=== PATIENT | male | born 1965 | race African-American/Black ===

== ENCOUNTER 2016-08-10 03:02 | Emergency (ER) | payer BC, OTHER ==
[2016-08-10] MEDS ORDERED: METHYLPREDNISOLONE INJ 125 MG/2 ML SDV IV ONE (04:29)
[2016-08-10] MEDS ORDERED: FAMOTIDINE INJ/PF 20 MG/2 ML SDV IV ONE (04:29)
[2016-08-10] MEDS ORDERED: DIPHENHYDRAMINE HCL 50 MG/ML VIAL IV ONE (04:29)
--- NOTE | 2016-08-10 04:32 | ER Document Report ---
ED Eye Complaint - General Chief Complaint: Drainage from Eye Stated Complaint: SWOLLEN EYES Time Seen by Provider: 08/10/16 04:21 Notes: Patient is a 50-year-old male that comes emergency department for chief complaint of left eyelid swelling. He states that this is the third day, he states initially he was taken Benadryl because it was itching but it did not resolve. He states he was seen by urgent care yesterday and placed on erythromycin ointment. He woke up this morning and noticed that the swelling was worse. He states that the area feels like it is burning, it is itchy, it is irritated, it is not specifically painful. He denies visual loss, states he feels blurry intermittently. He denies headache, fever, congestion, rash, sore throat, difficulty swallowing, difficulty breathing, or history of the same. He denies any new medications. Past medical history of hypertension, "borderline diabetes", and depression. TRAVEL OUTSIDE OF THE [place] IN LAST 30 DAYS: No - Related Data Allergies/Adverse Reactions: No Known Allergies Allergy (Verified 08/10/16 03:29) Past Medical History - General Information source: Patient - Social History Smoking Status: Never Smoker Frequency of alcohol use: None Drug Abuse: None Lives with: Family Family History: Reviewed & Not Pertinent Patient has suicidal ideation: No Patient has homicidal ideation: No - Past Medical History Cardiac Medical History: Reports: Hx Hypercholesterolemia, Hx Hypertension Renal/ Medical History: Denies: Hx Peritoneal Dialysis Surgical Hx: Negative - Immunizations Hx Diphtheria, Pertussis, Tetanus Vaccination: Yes Review of Systems - Review of Systems Constitutional: No symptoms reported EENT: See HPI Cardiovascular: No symptoms reported Respiratory: No symptoms reported Gastrointestinal: No symptoms reported Genitourinary: No symptoms reported Male Genitourinary: No symptoms reported Musculoskeletal: No symptoms reported Skin: No symptoms reported Hematologic/Lymphatic: No symptoms reported Neurological/Psychological: No symptoms reported Physical Exam - Vital signs Vitals: Temp Pulse Resp BP Pulse Ox 98 F 69 16 159/107 H 94 08/10/16 03:29 08/10/16 03:29 08/10/16 03:29 08/10/16 03:29 08/10/16 03:29 Interpretation: Normal - General General appearance: Appears well, Alert In distress: None - HEENT Head: Normocephalic, Atraumatic Eyes: Other - Swelling of the left thigh eyelids, more on the top and the bottom , the conjunctival looks normal, the pupil is normal and reactive, EOMs intact Conjunctiva: Normal Cornea: Normal. No: Corneal abrasion, Corneal ulcer, Dendrite, Flourescein stain uptake, Opacified, Superficial foreign body Extraocular movements intact: Yes Eyelashes: Normal Pupils: PERRL External canal: Normal Mucous membranes: Normal Pharynx: Normal Neck: Normal - Respiratory Respiratory status: No respiratory distress Chest status: Nontender Breath sounds: Normal Chest palpation: Normal - Cardiovascular Rhythm: Regular Heart sounds: Normal auscultation Murmur: No - Abdominal Inspection: Normal Distension: No distension Bowel sounds: Normal Tenderness: Nontender Organomegaly: No organomegaly - Back Back: Normal, Nontender - Extremities General upper extremity: Normal inspection, Nontender, Normal color, Normal ROM , Normal temperature General lower extremity: Normal inspection, Nontender, Normal color, Normal ROM , Normal temperature, Normal weight bearing. No: Alie's sign - Neurological Neuro grossly intact: Yes Cognition: Normal Orientation: AAOx4 Prosper Coma Scale Eye Opening: Spontaneous Prosper Coma Scale Verbal: Oriented Prosper Coma Scale Motor: Obeys Commands Prosper Coma Scale Total: 15 Speech: Normal Motor strength normal: LUE, RUE, LLE, RLE Sensory: Normal - Psychological Associated symptoms: Normal affect, Normal mood - Skin Skin Temperature: Warm Skin Moisture: Dry Skin Color: Normal Course - Re-evaluation Re-evalutation: Left eye with swelling of the left eyelid, eye appears normal, normal under fluorescein examination. Unremarkable visual acuity. Patient denying pain, he has no discharge, orbit appears fine. Patient given initial doses of antihistamines and steroid. He did have some minimal improvement here. I did ask Dr. Sommer to evaluate him at bedside, after evaluation he also agrees this appears allergic, recommends antihistamines, prednisone taper, return precautions. Discussed return precautions with patient in detail. Patient states understanding and agreement. - Vital Signs Vital signs: Temp Pulse Resp BP Pulse Ox 97.6 F 66 18 144/89 H 97 08/10/16 08:21 08/10/16 08:21 08/10/16 08:21 08/10/16 08:21 08/10/16 08:21 Discharge - Discharge Clinical Impression: Swelling of left eyelid Condition: Stable Disposition: HOME, SELF-CARE Additional Instructions: Examination is consistent with allergic cause. No concerning abnormalities noted today. Take the prednisone as prescribed, the zyrtec and pepcid for 1 week. Follow up with Primary Care. Return immediately for any spreading redness, loss of vision, pain with eye movement, or any other concerning symptoms. Prescriptions: Cetirizine HCl [Zyrtec 10 mg Tablet] 1 tab PO DAILY #30 tablet Famotidine [Pepcid 20 mg Tablet] 20 mg PO DAILY #12 tablet Prednisone [Deltasone 10 mg Tablet] 10 mg PO ASDIR PRN #21 tablet PRN Reason: Forms: Return to Work
[2016-08-10 08:23] VITALS: BP 144/89
== END 2016-08-10 08:23 | disposition home or self-care (01) ==
LOC: ER 03:02
DX: R22.0 Localized swelling, mass and lump, head (principal); L29.8 Other pruritus; I10 Essential (primary) hypertension
CPT/HCPCS: 99282; 96374; 96375; J1200; J2930; S0028